=== PATIENT | female | born 1995 | race Caucasian/White ===

== ENCOUNTER → 2016-11-06 | Outpatient (CLI) | payer OTHER ==
[2016-11-06 07:23] LABS: THYROID STIMULATING HORMONE 1.8 UIU/ML (0.35-4.94)
== END ==
LOC: LAB 06:15
PROVIDERS: ATTEND Internal Medicine
DX: R00.0 Tachycardia, unspecified (principal)
CPT/HCPCS: 36415; 82533; 84439; 84443; 86376; 86800